=== PATIENT | female | born 1940 | race Caucasian/White ===

== ENCOUNTER 2017-05-29 10:12 | Observation (INO) | payer MEDICARE, BC ==
[2017-05-29 10:42] LABS: #Eosinphils 0.3 thou/uL (0.0-0.7); #Lymphocytes 2.6 thou/uL (1.20-3.40); #Monocytes 0.5 thou/uL (0.11-0.59); %Basophils 0.7 % (0.0-1.0); %Eosinophils 3.4 % (0.0-10.0); %Lymphocytes 35.2 % (21.0-51.0); %Monocytes 6.5 % (0.0-10.0); Hematocrit 41.2 % (36.0-47.0); Mean Platelet Volume 9.1 fL (7.4-10.4); Red Blood Cell (RBC) Count 4.41 mill/uL (4.20-5.40); White Blood Cell (WBC) Count 7.4 thou/uL (4.8-10.8)
[2017-05-29 10:49] LABS: PTT 24.7 SEC (22.9-36.1)
[2017-05-29 10:50] LABS: Prothrombin Time 13.3 SEC (12.0-14.7)
[2017-05-29 10:56] LABS: Acetaminophen Less than 6.0 mcg/mL (10.0-30.0); Salicylate Less than 8.0 mg/dL (15.0-30.0)
--- NOTE | 2017-05-29 10:58 | CT ---
CT BRAIN PERFORMED WITHOUT CONTRAST ENHANCEMENT: History: Slurred speech. Patient found unresponsive. FINDINGS: Ventricular and cisternal system shows fairly age appropriate change. There is decreased attenuation of the periventricular white matter, most compatible with chronic ischemic white matter change. There are no signs of intracerebral hemorrhage or extraaxial fluid collections. Mastoid air cells and visu alized sinuses are clear. IMPRESSION: 1. Chronic white matter change no acute intracranial abnormalities. 2. Findings telephoned to Dr. Charles at 1023 hours. POS: [facility]
[2017-05-29 10:59] LABS: ALT (SGPT) 20 U/L (8-55); AST (SGOT) 16 U/L (5-34); Alkaline Phosphatase 75 U/L (40-150); Anion Gap 14 mmol/L (10-20); BUN (Urea Nitrogen) 26 mg/dL (9.8-20.1); Bilirubin, Total 0.5 mg/dL (0.2-1.2); CK (CPK) 45 U/L (29-168); Calc. Creatinine Clearance 0 mL/min (70-130); Carbon Dioxide 21 mmol/L (23-31); Chloride 106 mmol/L (98-107); Estimated GFR-MDRD 73; Globulin 2.5 g/dL (2.4-3.5); Lipase 50 U/L (8-78); Protein, Total 6.4 g/dL (6.0-8.3)
--- NOTE | 2017-05-29 11:00 | RAD ---
PORTABLE AP CHEST: Date: 05-29-17 History: Slurred speech, weakness. Patient found in car laying on horn. Comparison: 05-28-15 FINDINGS: Cardiac silhouette and pulmonary vasculature are within normal limits. Lungs are clear. Degenerative changes are again present in the spine. There has been no interval change from the prior exam. IMPRESSION: No acute cardiopulmonary process. POS: [facility]
[2017-05-29 11:02] LABS: Troponin I Less than 0.010 ng/mL (< 0.028)
[2017-05-29 13:18] LABS: Bilirubin Negative (Negative); Blood, Urine Negative (Negative); Glucose, Urine (Dipstick) 100 mg/dL (Negative); Ketone, Urine Trace mg/dL (Negative); Nitrite Negative (Negative); Protein, Urine (Dipstick) Negative (Neg-Trace); Urobilinogen 0.2 mg/dL (0.2-1.0)
[2017-05-29 13:21] LABS: Bacteria/HPF None Seen HPF (None Seen); Hyaline Casts/LPF 0-3 HYALINE CAST LPF (0-3 Hyaline); RBC/HPF None Seen HPF (0-3); Squamous Epithelial 0-3 HPF (0-3); WBC/HPF 0-3 HPF (0-3)
[2017-05-29] MEDS ORDERED: ISOVUE-370 76%-LOCM 1 ML ONE (13:26)
[2017-05-29 13:29] LABS: Amphetamine Not Detected (NotDetected); Methadone Not Detected (NotDetected); Methamphetamine Not Detected (NotDetected)
--- NOTE | 2017-05-29 14:44 | CT ---
CT ANGIOGRAM OF THE HEAD WITH CONTRAST CT ANGIOGRAM OF THE NECK WITH CONTRAST CT PERFUSION OF THE BRAIN CT BRAIN WITHOUT CONTRAST: TECHNIQUE: CT angiogram of the head after the intravenous administration of contrast as well as perfusion. 3D re ndering provided. FINDINGS: On the CT brain without contrast portion of the examination, there is no territorial hemorrhage or in farct. This is similar to the previous CT brain examination. Chronic white matter changes. There i s a left parafalcine partially calcified mass. On the perfusion, there is no elevated mean transit time. Cecal blood flow and volume is normal. On the CT angiogram component of the examination, there is mild dilatation of the pulmonary arteries. The transverse aorta is normal. There are atelectasis changes in lung apices. There are multiple hypodensities of the thyroid. The bilateral common carotid arteries are patent. No stenosis. The bilateral common carotid arteries are patent. The bilateral internal carotid arteries are patent . There is focal narrowing of the intradural left vertebral artery just before the basilar artery appro ximately 75% for a length of 5 mm. No focal stenosis of the redding of Bunch. IMPRESSION: 1. No focal thrombosis of the redding of Bunch. 2. There is 75% narrowing of the intradural left vertebral artery for a length of 5 mm just before i t inserts on the basilar artery. 3. Likely a partially calcified meningioma of the left falx series 4 image 258 measuring 6.9 mm. 4. No evidence of infarction. Normal mean transit time, blood volume, and blood flow. Dr. Charles notified of findings via telephone 12:53 p.m. CODE CR POS: [facility]
--- NOTE | 2017-05-29 14:59 | HP ---
PRIMARY CARE PHYSICIAN: Dr. Jake Manzano. REASON FOR ADMISSION: Stroke-like symptoms, rule out cerebrovascular accident. HISTORY OF PRESENT ILLNESS: A 77-year-old female who has underlying history of hypertension and dysl ipidemia, who was brought to emergency room for stroke-like symptoms. The patient reports that she w as having slurred speech, generalized weakness, lower extremity weakness on both sides, more on the r ight side. Patient felt as if she was having stroke. Paramedics were called and patient was brought to emergency room and patient had a stroke alert in the emergency room. As per report from emergency room physician, patient was found in [employer] parking and she was honking her horn and she was altered. Paramedics were unable to get answers from her. She appeared confuse d. In the emergency room, patient also appeared confused and she was not focusing and giving good co nsistent history. We tried to speak with the neighbors and tried to get information of the patient's family member, but unable to reach on the phone. At this point, the patient is not having any focal motor weakness. She is able to lift all 4 limbs, could not elicit any motor weakness, but patient appears slow. At this point, ER physician decided t o keep this patient in the hospital for observation to rule out CVA. In the emergency room, the richar ent had CT brain and CT angiography, which was unremarkable. ALLERGIES: No known drug allergies. CURRENT HOME MEDICATIONS: At this point, we do not have any medication history, because patient did not bring medications with her and she is not able to tell the name of medication, so we will review later whenever available. REVIEW OF SYSTEMS: The following complete review of systems was negative, unless otherwise mentioned in the HPI or below: Constitutional: Weight loss or gain, ability to conduct usual activities. Sk in: Rash, itching. Eyes: Double vision, pain. ENT/Mouth: Nose bleeding, neck stiffness, pain, te nderness. Cardiovascular: Palpitations, dyspnea on exertion, orthopnea. Respiratory: Shortness of breath, wheezing, cough, hemoptysis, fever, or night sweats. Gastrointestinal: Poor appetite, abdo la pain, heartburn, nausea, vomiting, constipation, or diarrhea. Genitourinary: Urgency, frequen cy, dysuria, nocturia. Musculoskeletal: Pain, swelling. Neurologic/Psychiatric: Anxiety, depressi on. Allergy/Immunologic: Skin rash, bleeding tendency. Please see my HPI for pertinent positives a nd negatives. All other review of systems were reviewed and negative. Review of systems is pretty m uch not reliable as well, because of patient's mental status changes. PAST MEDICAL HISTORY: Seasonal allergy, varicose vein, hypertension, and dyslipidemia. PAST SURGICAL HISTORY: Unable to get detailed surgical history from patient. PAST PSYCHIATRIC HISTORY: Reviewed and negative. SOCIAL HISTORY: Patient lives at home. She is taking care of her mentally retarded son. No history of tobacco, alcohol, or illicit drug abuse. FAMILY HISTORY: No strong family history of premature coronary artery disease, stroke, or cancer. EMERGENCY ROOM COURSE: Patient is given aspirin and IV fluid. PHYSICAL EXAMINATION: VITAL SIGNS: On arrival, blood pressure 109/57, pulse 85, respiratory rate 17, temperature 97.9, sat uration 95% on room air, weight 86.09 kilograms. GENERAL: Patient is currently alert, awake, arousable, follows commands. No obvious acute distress. HEENT: Head: Normocephalic, atraumatic. Eyes: Pupils round and reactive to light. Extraocular mu scle intact. ENT: Dry mucous membranes, no oral lesions, no pharyngeal erythema, no exudate. NECK: Supple, no JVD, no thyromegaly, no carotid bruit, no jugular venous distention. LUNGS: Clear to auscultation without any rhonchi or rales. CARDIAC: S1, S2 regular without any murmur. ABDOMEN: Soft and benign without any tenderness. BACK EXAMINATION: Unremarkable, no CVA tenderness. EXTREMITIES: Upper extremities, passive movement of all joints are normal. Lower extremities, passi ve movement of all joints are normal. SKIN: No skin rash. HEMATOLOGICAL SYSTEM: No lymphadenopathy. PSYCHIATRIC: Normal affect. NEUROLOGIC: Patient has a [place] coma scale of 15. No focal motor deficit noted. No focal sensory deficit noted. The patient is moving all 4 limbs. Speech is normal now. Motor and sensation withi n normal limits. Reflexes symmetrical. No cerebellar sign. SIGNIFICANT LABORATORY DATA: EKG, based on my review, normal sinus rhythm, nonspecific ST-T changes. CT brain, based on my review, no acute intracranial process. CT angiography negative for any steno sis. CBC: WBC 7.4, hemoglobin 13.7, platelets 152. INR 1.0, D-dimer less than 0.27. BMP: Sodium 137, potassium 3.5, chloride 105, carbon dioxide 21, anion gap 14, BUN 26, creatinine 0.76, glucose 1 58, calcium 9.0. LFT: AST 16, ALT 20, alkaline phosphatase 75, albumin 3.9, prolactin 20.47. BNP 1 6.2. CK 45, CK-MB 1.1, troponin I less than 0.010. Ammonia level 17. Urinalysis: Leukocyte estera se trace. Urine drug screen negative. Serum drug screen negative. Chest x-ray, based on my review, no acute cardiopulmonary process. ASSESSMENT AND PLAN: 1. Acute altered mental status, etiology uncertain. At this point, D-dimer is negative, CT brain is negative, CT head and neck angiography with brain perfusion study normal, chest x-ray normal, cardio gram is normal. Does not have any signs of infection, maybe mild dehydration is possible based on BU N and creatinine ratio. Does not have any sepsis or urinary tract infection. At this point, altered mental status, transient, which was resolved. Does not suspect any seizure given normal Prolactin, but we will keep this patient in the hospital for overnight for observation. We will do neuro check q.4 hourly. We will obtain a carotid ultrasound to rule out any carotid stenosis. We will obtain ec hocardiography. We will hydrate her with IV fluid and then we will consider discharging her home [facility]. At this point, MRI machine is down in our hospital and I do not think MRI is necessary at thi s point, because suspicious for stroke is extremely unlikely, but still we will continue to treat wit h aspirin and we will check lipid profile for risk stratification. 2. Mild dehydration. We will continue IV fluid with NS at 100 mL per hour. 3. Hypertension, currently patient's blood pressure runs low, so we will check orthostatic vitals an d rule out orthostatic hypotension. 4. Dyslipidemia. We will check lipid profile and we will verify the patient's home medication and t hen we will start the patient's home medication. 5. Deep vein thrombosis prophylaxis not needed, because we are expecting discharge in 24 hours. 6. Gastrointestinal prophylaxis, Pepcid 20 mg p.o. b.i.d. 7. Code status: The patient is FULL CODE. Patient's daughter is surrogate decision maker. Disposition plan within 24 hours. Plan of care discussed with the patient in detail in the emergency room.
[2017-05-29] MEDS ORDERED: Sodium Chloride 0.65% Nasal 44 ML BOT EA NARE PRN (16:00)
[2017-05-29] MEDS ORDERED: Mag-Al 1200 mg/1200 mg/30 ML UDCUP PO PRN (16:00)
[2017-05-29] MEDS ORDERED: Artificial Tears 18 DROP/0.9 ML EA EYE PRN (16:00)
[2017-05-29] MEDS ORDERED: Zolpidem Tartrate 5 MG TAB PO PRN (16:00)
[2017-05-29] MEDS ORDERED: hydrALAZINE 20 MG/ML VIAL SLOW IVP PRN (16:00)
[2017-05-29] MEDS ORDERED: Ondansetron HCl/PF 4 MG/2 ML Vial IVP PRN (16:00)
[2017-05-29] MEDS ORDERED: Milk Of Magnesia 30 ML UDCUP PO PRN (16:00)
[2017-05-29] MEDS ORDERED: Loratadine 10 MG TAB PO PRN (16:00)
[2017-05-29] MEDS ORDERED: Senokot 8.6 MG TAB PO PRN (16:00)
[2017-05-29] MEDS ORDERED: Loperamide HCl 2 MG CAP PO PRN (16:00)
[2017-05-29] MEDS ORDERED: Eucerin (Mineral Oil/Petrolatum,White) 30 gm Jar TOP PRN (16:00)
[2017-05-29] MEDS ORDERED: Acetaminophen 325 MG TAB PO PRN (16:00)
[2017-05-29] MEDS ORDERED: Diabetic Tussin 200 MG/10 ML UDCUP PO PRN (16:00)
[2017-05-29] MEDS ORDERED: Ondansetron ODT 4 MG TAB PO PRN (16:00)
[2017-05-29] MEDS ORDERED: HYDROcodone/Acetaminophen 5/325 mg Tablet PO PRN (16:00)
[2017-05-29 16:32] VITALS: BMI 29.2
[2017-05-29] MEDS: Sodium Chloride 0.9% 1,000 ML IV SCH (17:56)
[2017-05-29] MEDS: Famotidine 20 MG TAB PO SCH (20:32)
[2017-05-29] MEDS ORDERED: Atorvastatin Calcium 10 MG TAB PO SCH (21:00)
[2017-05-30] MEDS: Sodium Chloride 0.9% 1,000 ML IV SCH (02:23)
[2017-05-30 05:31] LABS: #Eosinphils 0.3 thou/uL (0.0-0.7); #Lymphocytes 2.2 thou/uL (1.20-3.40); #Monocytes 0.7 thou/uL (0.11-0.59); #Neutrophils 7.2 thou/uL (1.40-6.50); %Basophils 0.4 % (0.0-1.0); %Eosinophils 2.8 % (0.0-10.0); %Lymphocytes 21.4 % (21.0-51.0); %Monocytes 6.3 % (0.0-10.0); Hematocrit 37.8 % (36.0-47.0); Mean Platelet Volume 8.9 fL (7.4-10.4); White Blood Cell (WBC) Count 10.4 thou/uL (4.8-10.8)
[2017-05-30 05:41] LABS: Anion Gap 11 mmol/L (10-20); BUN (Urea Nitrogen) 15 mg/dL (9.8-20.1); Calc. Creatinine Clearance 0 mL/min (70-130); Calcium 8.6 mg/dL (7.8-10.44); Carbon Dioxide 21 mmol/L (23-31); Chloride 107 mmol/L (98-107); Cholesterol 198 mg/dl (< 200 Desired); Estimated GFR-MDRD Greater than 90; LDL Cholesterol, Calculated 131 mg/dL
[2017-05-30] MEDS ORDERED: Potassium Chloride 20 MEQ TAB PO SCH (08:00)
[2017-05-30] MEDS: Famotidine 20 MG TAB PO SCH (08:56)
[2017-05-30] MEDS ORDERED: Aspirin 325 mg Enteric Coated Tablet PO SCH (09:00)
[2017-05-30] MEDS ORDERED: Amlodipine 5 MG TAB PO SCH (09:00)
--- NOTE | 2017-05-30 09:45 | PDOC.PN ---
- Subjective Encounter Start Date: 05/30/17 Encounter Start Time: 07:00 -: old records requested/rev Patient seen and examined. No new complaints. No overnight events - Objective Resuscitation Status: Resuscitation Status FULL:Full Resuscitation MAR Reviewed: Yes Vital Signs & Weight: Vital Signs (12 hours) Temp Pulse Resp BP Pulse Ox 05/30/17 08:55 74 05/30/17 08:00 97.9 F 74 20 145/67 H 97 05/30/17 07:50 98.4 F 78 16 05/30/17 03:36 98.4 F 78 16 148/63 H 96 05/29/17 23:49 98.3 F 86 16 168/61 H 96 Weight Weight 6.748 oz I&O: 05/29/17 05/30/17 05/31/17 06:59 06:59 06:59 Intake Total 1212 114 Output Total 0 Balance 1212 114 Result Diagrams: 05/30/17 04:59 05/30/17 04:59 Radiology Reviewed by me: Yes EKG Reviewed by me: Yes (nsr) Phys Exam - Physical Examination Constitutional: NAD HEENT: PERRLA, moist MMs, sclera anicteric Neck: no JVD, supple Respiratory: no wheezing, no rales, no rhonchi Cardiovascular: RRR, no significant murmur, no rub Gastrointestinal: soft, non-tender, no distention, positive bowel sounds Musculoskeletal: no edema, pulses present Neurological: non-focal, normal sensation, moves all 4 limbs Lymphatic: no nodes Psychiatric: normal affect, A&O x 3 Skin: no rash, normal turgor Dx/Plan (1) Dehydration Code(s): E86.0 - DEHYDRATION Status: Acute (2) Hypokalemia Code(s): E87.6 - HYPOKALEMIA Status: Acute (3) Stroke-like symptoms Code(s): R29.90 - UNSPECIFIED SYMPTOMS AND SIGNS INVOLVING THE NERVOUS SYSTEM Status: Acute (4) Dyslipidemia Code(s): E78.5 - HYPERLIPIDEMIA, UNSPECIFIED Status: Chronic (5) Hypertension Code(s): I10 - ESSENTIAL (PRIMARY) HYPERTENSION Status: Chronic - Plan cont current plan of care * clinically so far cva is ruled out * still MRI pending * Echo done and result pending * pt is back to normal * may increase amlodipine to 5 mg * add lipitor * continue aspirin * medication reviewed as below * symptomatic treatment. * discharge one work up done and negative Review of Systems - Review of Systems Constitutional: negative: Fever, Chills, Sweats, Weakness, Malaise, Other ENT: negative: Ear Pain, Ear Discharge, Nose Pain, Nose Discharge, Nose Congestion, Mouth Pain, Mouth Swelling, Throat Pain, Throat Swelling, Other Respiratory: negative: Cough, Dry, Shortness of Breath, Hemoptysis, SOB with Excertion, Pleuritic Pain, Sputum, Wheezing Cardiovascular: negative: Chest Pain, Palpitations, Orthopnea, Paroxysmal Noc. Dyspnea, Edema, Light Headedness, Other Gastrointestinal: negative: Nausea, Vomiting, Abdominal Pain, Diarrhea, Constipation, Melena, Hematochezia, Other Genitourinary: negative: Dysuria, Frequency, Incontinence, Hematuria, Retention , Other Musculoskeletal: negative: Neck Pain, Shoulder Pain, Arm Pain, Back Pain, Hand Pain, Leg Pain, Foot Pain, Other Skin: negative: Rash, Lesions, Mk, Bruising, Other Neurological: negative: Weakness, Numbness, Incoordination, Change in Speech, Confusion, Seizures, Other - Medications/Allergies Allergies/Adverse Reactions: Allergies Allergy/AdvReac Type Severity Reaction Status Date / Time No Known Allergies Allergy Unverified 05/29/17 16:33 Medications: Current Medications Acetaminophen (Tylenol) 650 mg PO Q4H PRN PRN Reason: Headache/Fever or Pain Last Admin: 05/29/17 20:32 Dose: 650 mg Hydrocodone Bitart/Acetaminophen ([place] 5/325) 1 tab PO Q4H PRN PRN Reason: Moderate Pain (4-6) Al Hydroxide/Mg Hydroxide (Maalox) 30 ml PO Q6H PRN PRN Reason: Heartburn or Indigestion Amlodipine Besylate (Norvasc) 5 mg PO DAILY [facility] Last Admin: 05/30/17 08:55 Dose: Not Given Artificial Tears (Tears Naturale) 0 drop EA EYE PRN PRN PRN Reason: Dry Eyes Aspirin (Ecotrin) 325 mg PO DAILY [facility] Last Admin: 05/30/17 08:56 Dose: 325 mg Atorvastatin Calcium (Lipitor) 10 mg PO HS [facility] Last Admin: 05/29/17 20:33 Dose: Not Given Famotidine (Pepcid) 20 mg PO BID [facility] Last Admin: 05/30/17 08:56 Dose: 20 mg Guaifenesin (Robitussin Sf) 200 mg PO Q4H PRN PRN Reason: Cough Hydralazine HCl (Apresoline) 10 mg SLOW IVP Q4H PRN PRN Reason: Systolic BP > 180 Loperamide HCl (Imodium) 2 mg PO PRN PRN PRN Reason: Diarrhea/Loose Stools Loratadine (Claritin) 10 mg PO DAILYPRN PRN PRN Reason: Sinus Symptoms Magnesium Hydroxide (Milk Of Magnesium) 30 ml PO DAILYPRN PRN PRN Reason: Constipation Mineral Oil/White Petrolatum (Eucerin Cream) 0 gm TOP BIDPRN PRN PRN Reason: Dry Skin Ondansetron HCl (Zofran Odt) 4 mg PO Q6H PRN PRN Reason: Nausea/Vomiting Ondansetron HCl (Zofran) 4 mg IVP Q6H PRN PRN Reason: Nausea/Vomiting Potassium Chloride (K-Dur) 40 meq PO 0800 [facility] Stop: 05/30/17 11:00 Last Admin: 05/30/17 08:56 Dose: 40 meq Senna (Senokot) 2 tab PO HSPRN PRN PRN Reason: Constipation Sodium Chloride ([place] Nasal [place] 0.65%) 0 ml EA NARE QIDPRN PRN PRN Reason: Nasal Congestion Zolpidem Tartrate (Ambien) 5 mg PO HSPRN PRN PRN Reason: Insomnia
--- NOTE | 2017-05-30 11:41 | MRI ---
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 FINDINGS: The ventricles are normal in size and configuration. There is no restricted diffusion, midline shift or any other mass effect, recent intraaxial hemorrhage, or extraaxial fluid collection. There is a moderate degree of T2-hyperintensities in the cerebral white matter consistent with chronic ischemic white matter changes due to microvascular atherosclerosis. IMPRESSION: 1. Moderate chronic ischemic white matter changes. 2. Otherwise negative. jn[] POS: [facility]
[2017-05-30 11:54] VITALS: TEMP 99.4
--- NOTE | 2017-05-30 14:20 | DIS ---
DATE OF ADMISSION: 05/29/2017 DATE OF DISCHARGE: 05/30/2017 PRIMARY CARE PHYSICIAN: Sita Jarquin NP DISCHARGE DISPOSITION: Home. PRIMARY DISCHARGE DIAGNOSES: 1. Stroke-like symptoms, ruled out cerebrovascular accident. 2. Dehydration, corrected. 3. Hypokalemia, corrected. SECONDARY DISCHARGE DIAGNOSES: Hypertension, dyslipidemia. PRIMARY PROCEDURE/OPERATION: None. RADIOLOGICAL INVESTIGATION: Head and neck CT angiography with brain perfusion, normal. CT brain nor mal. Chest x-ray normal. MRI brain negative for any acute intracranial process. SIGNIFICANT LABORATORY DATA: WBC 10.4, hemoglobin 12.6 and platelets 154. INR 1.0, D-dimer less sarbjit n 0.27. Sodium 136, potassium 3.3, BUN 15, creatinine 0.58. Cardiac enzymes negative. LFTs normal. BNP 16.2. Prolactin 20.4, lipase 50, LDL 131. Urinalysis: Leukocyte esterase trace. Urine drug screen negative. Serum drug screen negative. DISCHARGE MEDICATIONS: Amlodipine 5 mg p.o. daily, aspirin 325 mg p.o. daily, Lipitor 10 mg p.o. at bedtime. CONTRAINDICATIONS: None. CODE STATUS: FULL CODE. INPATIENT CONSULTANTS: None. ALLERGIES: No known drug allergy. DISCHARGE PLAN: Post hospital, the patient will follow up with primary care physician. HOSPITAL COURSE: A 77-year-old female who was presented to the emergency room with stroke-like sympt oms. Please see my HPI for further details. The patient was found in the [employer] parking lot [facility] and she was having weakness on both lower extremities. Her symptoms was pretty much very vague, bu t considering stroke-like symptoms. Patient was brought to hospital and a stroke alert was initiated . Initially, CT angiography with brain perfusion study and CT brain was normal. The patient was adm itted to telemetry stroke floor for observation. We did a stroke workup and everything came back nor mal. She was clinically appeared dehydrated and that is why the patient was given IV fluid. Her blo od pressure was running high and that is why we increased amlodipine to 5 mg daily. Her LDL was 131 and that is why we started Lipitor therapy. Aspirin was also advised. The patient was back to normal. Next day, her neurological examination is normal. The patient is se en and examined at bedside today. Please see my progress note from today for further details. Leonarda cristobal is medically stable for discharge today.
[2017-05-30 14:36] VITALS: BP 130/60
== END 2017-05-30 14:50 | disposition home or self-care (01) ==
LOC: ERS 10:12 → 2SE 13:40
PROVIDERS: ADMIT Internal Medicine; ATTEND Internal Medicine
DX: R29.898 Other symptoms and signs involving the musculoskeletal system (principal); R47.81 Slurred speech; R53.1 Weakness; E86.0 Dehydration; E87.6 Hypokalemia; I10 Essential (primary) hypertension; E78.5 Hyperlipidemia, unspecified; J30.2 Other seasonal allergic rhinitis
CPT/HCPCS: 0042T; 70450; 70496; 70498; 70551; 71010; 80048; 80053; 80061; 80306; 80307; 82140; 82550; 82553; 82962; 83690; 83880; 84146; 84484; 85025 ×2; 85379; 85610; 85730; 93005; 93306; 96360; 96361 ×3; 97139; 99285; G0378; 36415; 36416; 81003; 81015; J0360

== ENCOUNTER 2018-07-08 12:44 | Emergency (ER) | payer MEDICARE, BC ==
--- NOTE | 2018-07-08 14:18 | CT ---
CT OF HEAD NONCONTRAST: COMPARISON: 05/29/2017. INDICATION: Stroke symptoms, glossal edema, oral edema. FINDINGS: There is encephalomalacia of the left cerebral hemisphere, similar. No acute intracranial hemorrhage , mass effect, or midline shift. There is a gliosis of the bilateral cerebral white matter remaining . There is no fluid level of the imaged paranasal sinuses. 9 mm extraaxial hyperdense mass overlying the medial left frontoparietal convexity. IMPRESSION: 1. No acute intracranial hemorrhage or mass effect. 2. 9 mm extraaxial hyperdense mass overlying the medial left frontoparietal convexity. This is most likely a meningioma. 3. Stable chronic findings. Case discussed with Dr. Mehta via telephone. POS: [facility]
[2018-07-08 14:46] LABS: #Basophils 0.1 thou/uL (0.0-0.2); #Eosinphils 0.2 thou/uL (0.0-0.7); #Lymphocytes 1.6 thou/uL (1.20-3.40); #Monocytes 0.4 thou/uL (0.11-0.59); #Neutrophils 4.4 thou/uL (1.40-6.50); %Basophils 1.3 % (0.0-1.0); %Eosinophils 3.2 % (0.0-10.0); %Lymphocytes 23.4 % (21.0-51.0); %Monocytes 6.1 % (0.0-10.0); Hemoglobin 14.4 g/dL (12.0-16.0); Mean Corpuscular Volume 88.1 fL (78.0-98.0); Mean Platelet Volume 9.3 fL (7.4-10.4); Platelet Count 168 thou/uL (130-400); RBC Distribution Width 12.1 % (11.5-14.5); Red Blood Cell (RBC) Count 4.81 mill/uL (4.20-5.40); White Blood Cell (WBC) Count 6.7 thou/uL (4.8-10.8)
--- NOTE | 2018-07-08 14:55 | RAD ---
SINGLE VIEW OF THE CHEST: Comparison: 05-29-17 History: Stroke with weak legs and difficulty speaking. FINDINGS: Single view of the chest shows a normal sized cardiomediastinal silhouette. There is no evidence of c onsolidation, mass, or pleural effusion. The bones are unremarkable. IMPRESSION: No evidence of acute cardiopulmonary disease. POS: [facility]
[2018-07-08 14:58] LABS: ALT (SGPT) 22 U/L (8-55); AST (SGOT) 19 U/L (5-34); Albumin 4.4 g/dL (3.4-4.8); Alkaline Phosphatase 81 U/L (40-150); Anion Gap 15 mmol/L (10-20); BUN (Urea Nitrogen) 23 mg/dL (9.8-20.1); Bilirubin, Total 0.3 mg/dL (0.2-1.2); CK (CPK) 50 U/L (29-168); Calc. Creatinine Clearance 0 mL/min (70-130); Calcium 9.2 mg/dL (7.8-10.44); Carbon Dioxide 24 mmol/L (23-31); Chloride 104 mmol/L (98-107); Estimated GFR-MDRD 74; Globulin 2.7 g/dL (2.4-3.5); Glucose 125 mg/dL (83-110); Potassium 3.7 mmol/L (3.5-5.1); Protein, Total 7.1 g/dL (6.0-8.3); Sodium 139 mmol/L (136-145)
[2018-07-08] MEDS ORDERED: Pyridostigmine Bromide IR 60 MG TAB PO SCH (16:15)
[2018-07-09 12:20] LABS: Reference Lab Name LABCORP
[2018-07-09 12:21] LABS: Ref Lab Test Ordered ACETYLCHOL RECEPT
== END 2018-07-08 20:01 | disposition home or self-care (01) ==
LOC: SCSER 12:44
DX: R47.81 Slurred speech (principal); I10 Essential (primary) hypertension; Z86.718 Personal history of other venous thrombosis and embolism
CPT/HCPCS: 36415; 70450; 71045; 80053; 82550; 84484; 85025; 85610; 85730; 86850; 86900; 86901; 93005; 94760

== ENCOUNTER 2018-10-26 14:01 | Outpatient (CLI) | payer MEDICARE, BC ==
--- NOTE | 2018-10-26 14:52 | ULT ---
VENOUS DOPPLER ULTRASOUND OF THE LEFT LOWER EXTREMITY: HISTORY: Infection and puncture wound in lateral left lower leg. Left leg pain. TECHNIQUE: Patel scale ultrasound with color flow and spectral Doppler imaging of the deep venous system of the l eft lower extremity is performed. FINDINGS: There is good flow, compression, and augmentation noted in the left common femoral, femoral, deep fem oral, popliteal, posterior tibial, and greater saphenous veins. IMPRESSION: No evidence of deep vein thrombosis in the left lower extremity. POS: [facility]
--- NOTE | 2018-10-26 14:57 | RAD ---
LEFT FEMUR 2 VIEWS: HISTORY: Leg pain and swelling. There are mild to moderate arthritic changes of the hip and more pronounced arthritic changes of the knee. The bones are demineralized. There is no acute bony change. IMPRESSION: No evidence of fracture or acute findings. POS: [facility]
== END 2018-10-26 14:02 | disposition home or self-care (01) ==
LOC: SCSULT 14:01
PROVIDERS: ATTEND Nurse Practitioner Family
DX: M79.605 Pain in left leg (principal); R60.0 Localized edema

== ENCOUNTER 2018-12-01 12:15 | Outpatient (CLI) | payer MEDICARE, BC ==
--- NOTE | 2018-12-01 13:31 | RAD ---
RADIOGRAPH CHEST 2 VIEWS: Date: 12/01/18 Time: 12:22 p.m. HISTORY: 78-year-old female with cough, bronchitis. COMPARISON: 07/08/18 FINDINGS: There is a new finding of mild streaky densities at the base of the left lung, probably in the left l ower lobe. This may represent subsegmental atelectasis or scar that has occurred since the prior stud y. There is a smaller chance that this could represent pneumonia, but follow-up is recommended. No pl eural effusion or cardiomegaly. No pulmonary edema or pneumothorax. IMPRESSION: Mild streaky pulmonary densities at the base of the left lower lobe. Differential diagnosis given abo ve. Recommend serial follow-up chest radiographs, beginning in a few days. JN [] POS: [facility]
== END 2018-12-01 12:16 | disposition home or self-care (01) ==
LOC: SCSRAD 12:15
PROVIDERS: ATTEND Nurse Practitioner Family
DX: J40 Bronchitis, not specified as acute or chronic (principal); R91.8 Other nonspecific abnormal finding of lung field
CPT/HCPCS: 71046

== ENCOUNTER 2018-12-06 10:20 | Outpatient (CLI) | payer MEDICARE, BC ==
--- NOTE | 2018-12-06 10:41 | RAD ---
2 views of the chest: 12/06/2018 COMPARISON: 12/01/2018 HISTORY: Reevaluate pneumonia FINDINGS: The prior examination demonstrated subtle infiltrate in the left lung base. On today's exam ination, aeration within the left base has improved. There is no pneumothorax or focal consolidation. Mild diffuse increased linear interstitial density and mild pulmonary hyperinflation n oted. IMPRESSION: Improved aeration within the left lung base. No focal consolidation or alveolar edema.
== END 2018-12-06 10:21 | disposition home or self-care (01) ==
LOC: SCSRAD 10:20
PROVIDERS: ATTEND Nurse Practitioner Family
DX: J18.1 Lobar pneumonia, unspecified organism (principal)
CPT/HCPCS: 71046

== ENCOUNTER 2018-12-13 08:35 | Outpatient (CLI) | payer MEDICARE, BC ==
--- NOTE | 2018-12-13 09:02 | RAD ---
XR Chest Pa Lat STANDARD HISTORY: Follow-up pneumonia COMPARISON: 12/06/2018 FINDINGS: The heart size is normal. The lungs are well expanded without focal areas of consolidation, pneumothorax or pleural effusions. There are degenerative changes in the spine. IMPRESSION: No radiographic evidence of acute cardiopulmonary process.
== END 2018-12-13 08:36 | disposition home or self-care (01) ==
LOC: SCSRAD 08:35
PROVIDERS: ATTEND Nurse Practitioner Family
DX: J18.1 Lobar pneumonia, unspecified organism (principal)
CPT/HCPCS: 71046

== ENCOUNTER 2019-04-14 08:44 | Emergency (ER) | payer MEDICARE, BC ==
--- NOTE | 2019-04-14 10:19 | RAD ---
RIGHT FOREARM TWO VIEWS: RIGHT WRIST THREE VIEWS: HISTORY: Trauma. Right wrist pain. FINDINGS: There is a comminuted fracture involving the distal radius with involvement of the articular surface and no significant displacement. The right ulna is intact. There is widening of the scapholunate spac e. POS: [facility]
== END 2019-04-14 10:28 | disposition home or self-care (01) ==
LOC: SCSER 08:44
DX: S52.501A Unspecified fracture of the lower end of right radius, initial encounter for closed fracture (principal); I10 Essential (primary) hypertension; Z86.718 Personal history of other venous thrombosis and embolism; Z79.899 Other long term (current) drug therapy; W18.30XA Fall on same level, unspecified, initial encounter
CPT/HCPCS: 25600